=== PATIENT | female | born 1985 | race Caucasian/White ===

== ENCOUNTER 2025-05-19 12:22 | Emergency (ER) | payer OTHER, SELFPAY ==
[2025-05-19 12:29] VITALS: BP 129/77
--- NOTE | 2025-05-19 12:59 | EDRN ---
Pt states she recently moved into this [place] March 10. Pt states that her PCP is an hour away. Pt states someone who works in her PCP's office called in her medication suboxone for a weeks' supply. Pt called Thus w/ no call back then called again
on Sunday and got the answering service that would not allow her leave a message. Pt had to get a new home because her other one was locked and now this phone is also locked out of portal. [place] pt asked pharmacist to reach out to PCP who declined
the request. Pt is on 8mg of suboxone tid and Zoloft 125mg daily, klonopin 1mg BID, albuteral (lost it) as needed.
--- NOTE | 2025-05-19 13:50 | ED.GENMED ---
History of Present Illness
General
Chief Complaint: Prescription Refill
Source: patient
Exam Limitations: none
Time Seen by Provider: 05/19/25 13:41
History of Present Illness
History of Present Illness:
See MDM
Past History
Past History
ED Past Medical History: Psychiatric
ED Past Surgical History: None
Social History
Tobacco: Non-smoker
Alcohol: None
Phy Exam
Physical Exam
Physical Exam:
See MDM
Course
Orders/Labs/Results
Orders:
Orders
05/19/25 13:48
Case Management Consult ONCE
Case Management Consult: Discharge Planning
Clonazepam [Klonopin] 1 mg PO NOW STA
05/19/25 13:49
Buprenorphine [Subutex] 8 mg SL ONCE ONE
Vital Signs
Initial and Last Documented VS:
Initial Vital Signs
Temp
98.2 F
05/19/25 12:25
Last Documented Vital Signs
Temp Pulse Resp BP Pulse Ox
98.4 F 64 16 126/70 100
05/19/25 12:29 05/19/25 14:06 05/19/25 14:06 05/19/25 14:06 05/19/25 14:06
MDM/Problems Addressed
Differential Diagnosis Includes:
Note:
CHIEF COMPLAINT(S)
The patient is requesting medication refills.
HISTORY OF PRESENT ILLNESS
The patient is a 39-year-old female who recently moved to the area and is seeking medication refills. She has been unable to find a medical provider that accepts her insurance and noted difficulty with proximity to healthcare facilities, stating, 'I
moved up here recently and Im not really familiar with the area.' She has been out of Clonazepam for five days and has not refilled Buprenorphine/Naloxone since Sunday. The patient is attempting to manage her prescriptions and mentioned not liking
the regular formulation of Amphetamine/Dextroamphetamine; she prefers an extended-release, which has been difficult to obtain. The patient is also currently on Sertraline and expressed satisfaction with the regimen.
SOCIAL DETERMINANTS AFFECTING HEALTH
The patient mentioned having difficulty accessing healthcare services and pharmacies within walking distance that accept her Medicare program. She expressed the need for assistance in navigating local healthcare resources and providers.
MEDICATIONS
- Buprenorphine/Naloxone 2 mg, three times daily.
- Clonazepam, dosage unspecified, one tab daily.
- Sertraline 125 mg, once daily.
- Amphetamine/Dextroamphetamine, unspecified formulation, on hold until further consultation.
PHYSICAL EXAM
General: Alert, no acute distress.
Skin: Warm, dry.
Head: Normocephalic, atraumatic
Neck: Appears supple, trachea midline.
Eyes, Ears, Nose, Mouth, and Throat: Oral mucosa moist.
Cardiovascular: No signs of cyanosis
Respiratory: Respirations are non-labored.
Abdomen: Non-distended
Musculoskeletal: No deformities
Neurological: No focal neurological deficit observed.
Psychiatric: Cooperative, appropriate mood and affect.
PROBLEM LIST
- Acute: Out of Clonazepam and Buprenorphine/Naloxone.
PLAN
1. Refill Buprenorphine/Naloxone and Clonazepam as the patient has been without these medications for several days.
2. Investigate the possibility of connecting the patient with a mattress spring encaser to assist with identifying a primary care provider and navigating insurance and healthcare access.
3. Discuss with the patient the challenges related to obtaining the preferred formulations of her medications.
4. Prescriptions to be sent to the pharmacy as indicated by the patient.
DIFFERENTIAL DIAGNOSIS
The Differential Diagnosis includes, in no particular order and is not limited to:
1. Anxiety Disorder
2. Depression
3. Opioid Use Disorder
4. Substance Dependence
5. Adjustment Disorder
6. Generalized Anxiety Disorder
7. Mood Disorder
8. Attention Deficit Hyperactivity Disorder
9. Substance Withdrawal Syndrome
10. Pharmacological Adverse Effects
*Pulse Oximetry
SaO2: 100
Oxygen Mode of Delivery: Room air
Patient hypoxic: no
*Critical Care Note
Total Time (30-74mins, 75-104mins- exclusive of procedures): Not Applicable
Update Note
Update Note:
Patient was evaluated by mattress spring encaser and provided information about getting referrals. She feels comfortable going home. She was given a 1 week prescription of the requested medicines
ED Attending Note
-
Portions of this chart may have been created with voice recognition software.� Occasional wrong word or��sound alike� substitutions may have occurred due to the inherent limitations of voice recognition software.
Discharge Plan
Departure
Patient Disposition: Home (Routine Discharge)
Date of Disposition: 05/19/25
Time of Disposition: 14:47
Patient with high blood pressure during this ER visit?: No
Discharge Problem:
Prescription refill
Prescriptions:
New
buprenorphine-naloxone [Suboxone] 8-2 mg film
1 film buccal TID Qty: 21 0RF
clonazepam [Klonopin] 1 mg tablet
1 mg PO BID Qty: 14 0RF
sertraline [Zoloft] 50 mg tablet
125 mg PO DAILY 7 Days Qty: 18 0RF
Referrals:
[facility] [Provider Group]
Ayush Donovan DO [Family Provider]
Activity Restrictions/Additional Instructions:
Please call to set up an appointment with the primary care doctor.
Interventions
Interventions:
*Risk Screen - Suicide Last Done: 05/19/25 12:25
*General Assessment Last Done: 05/19/25 13:05
*Neglect/Abuse Screening Last Done: 05/19/25 13:06
*ED- Fall Risk Assessment Last Done: 05/19/25 13:05
*ED COVID-19 Vaccine History Last Done: 05/19/25 13:05
Discharge Date and Time
Print Language: CZECH
[2025-05-19] MEDS: SUBUTEX 8 MG SL (14:03)
[2025-05-19] MEDS: KLONOPIN 1 MG PO (14:03)
[2025-05-19 14:06] VITALS: BP 126/70; BMI 29.0
--- NOTE | 2025-05-19 14:22 | EDRN ---
[employer]ender Shireen ramirez/ marco a at this time.
--- NOTE | 2025-05-19 15:11 | CM ---
Received CM consult. I met with pt bedside in ED. Pt states she recently moved to [place] from [place]. She needs refills of medications, including Suboxone. Pt told me Ayush Donovan is her PCP and he was prescribing her meds prior to her move.
I encouraged her to reach out to Dr Donovan for refills and a referral to a PCP in the [place] area.
Pt told me she has a 7 year old daughter who is living with her grandparents in [place]. She did not want to bring her daughter to [place] as she is happy at her current school.
Pt told me she is looking for work and needs to get a car. She was working as a Drug and Alcohol Counselor, has worked at [employer] and [employer]. She is planning to reach out to [facility], we also discussed [facility] and she will reach out
to them as well.
No other CM needs at this time.
== END 2025-05-19 14:51 | disposition home or self-care (01) ==
LOC: EMR 12:22
PROVIDERS: EMERGENCY PHYSICIAN Student in an Organized Health Care Education/Training Program; FAMILY PHYSICIAN Family Medicine
DX: Z76.0 Encounter for issue of repeat prescription (principal); Z79.891 Long term (current) use of opiate analgesic; Z79.899 Other long term (current) drug therapy
CPT/HCPCS: 99282